=== PATIENT | female | born 1990 ===

== ENCOUNTER 2022-02-07 03:27 | Inpatient (IN) ==
[~2022-02-07 03:27] MED LIST: Azithromycin 500 MG in 0.9 % Sodium Chloride 250 ML IVPB PRN; Famotidine 20 MG/2 ML VIAL IVP PRN; Metoclopramide 10 MG/2 ML VIAL IVP PRN; Naloxone 0.4 MG/ML INJ IVP PRN; Ondansetron 4 MG/2 ML VIAL IVP PRN
[2022-02-07] MEDS ORDERED: Oxytocin 30 UNIT/503 ML BAG IVC SCH ×2 (03:30→07:39)
[2022-02-07 04:06] LABS: Basophils % 0.3 %; Eosinophils # 0.2 K/mcL (0.0-0.6); Eosinophils % 1.3 %; Hematocrit 33.9 % (35.3-44.9); Hemoglobin 10.9 g/dL (11.5-15.4); Immature Granulocytes % 0.4 % (0-4); Lymphocytes # 2.2 K/mcL (0.6-4.6); Lymphocytes % 15.8 %; Mean Corpuscular HGB Conc 32.2 g/dL (31.6-35.5); Mean Corpuscular Hemoglobin 27.8 pg (28.0-33.3); Mean Corpuscular Volume 86.5 fL (83.0-100.0); Mean Platelet Volume 10.7 fL (9.4-12.4); Monocytes # 0.9 K/mcL (0.0-1.3); Monocytes % 6.2 %; Neutrophils # 10.5 K/mcL (1.6-8.9); Platelet Count 279 K/mcL (140-400); Red Blood Count 3.92 M/mcL (3.82-4.97); Red Cell Distribution Width 12.1 % (11.5-14.5); White Blood Count 13.8 K/mcL (4.3-11.1)
[2022-02-07] MEDS ORDERED: EPHEDrine 50 MG/ML VIAL IVP PRN (04:07)
[2022-02-07] MEDS ORDERED: Epidural Premix (fent/bupiv) 110 ML EP SCH (04:15)
[2022-02-07] MEDS: *HR* FentaNYL (PF) 100 MCG/2 ML VIAL IVP PRN ×2 (04:18→06:12)
[2022-02-07 04:34] LABS: Influenza A PCR Negative (Negative); Influenza B PCR Negative (Negative); Resp. Syncytial Virus PCR Negative (Negative)
[2022-02-07 04:36] LABS: SARS-CoV-2 by PCR (In House) Negative (Negative)
[2022-02-07] MEDS ORDERED: Ringers Solution, Lactated 1,000 ML ONE (05:11)
[2022-02-07 05:56] LABS: Amphetamine Screen,Urine Negative ng/mL (Cutoff=1000); Barbiturate Screen,Urine Negative ng/mL (Cutoff=200); Benzodiazepines Screen,Urine Negative ng/mL (Cutoff=200); Cannabinoid Screen,Urine Negative ng/mL (Cutoff = 50); Cocaine Screen,Urine Negative ng/mL (Cutoff= 300); Opiate Screen,Urine Negative ng/mL (Cutoff=300); Phencyclidine Screen,Urine Negative ng/mL (Cutoff=25)
[2022-02-07] MEDS ORDERED: Benzocaine/Menthol 56 GM AEROSOL SPRAY TP PRN (07:39)
[2022-02-07] MEDS ORDERED: Lanolin 7 G OINT...G. TP PRN (07:39)
[2022-02-07] MEDS ORDERED: Ondansetron ODT 4 MG TAB.RAPDIS SL PRN (07:39)
[2022-02-07] MEDS ORDERED: OXYTOCIN/RINGERS LACTATE 10 UNIT/166.6 ML BAG IVC ONE (07:39)
[2022-02-07] MEDS: Acetaminophen 325 MG TABLET PO SCH ×3 (08:03→23:04)
[2022-02-07] MEDS: *HR* Buprenorphine HCl 8 MG TAB.SUBL SL SCH (09:56)
[2022-02-07] MEDS: Ibuprofen 600 MG TABLET PO SCH ×3 (09:56→22:58)
[2022-02-07] MEDS: Prenatal Vit/FA 1 EACH TABLET PO SCH (09:56)
[2022-02-08 04:08] LABS: Basophils % 0.4 %; Eosinophils # 0.2 K/mcL (0.0-0.6); Eosinophils % 2.2 %; Hematocrit 30.1 % (35.3-44.9); Hemoglobin 9.8 g/dL (11.5-15.4); Immature Granulocytes % 0.5 % (0-4); Lymphocytes # 2.4 K/mcL (0.6-4.6); Mean Corpuscular HGB Conc 32.6 g/dL (31.6-35.5); Mean Platelet Volume 10.5 fL (9.4-12.4); Monocytes # 0.8 K/mcL (0.0-1.3); Monocytes % 7.9 %; Neutrophils # 6.4 K/mcL (1.6-8.9); Platelet Count 224 K/mcL (140-400); Red Cell Distribution Width 12.1 % (11.5-14.5); White Blood Count 9.8 K/mcL (4.3-11.1)
[2022-02-08] MEDS: Ibuprofen 600 MG TABLET PO SCH (05:24)
[2022-02-08] MEDS: Acetaminophen 325 MG TABLET PO SCH (05:24)
[2022-02-08 07:41] VITALS: BP 122/63; PULSE 77; TEMP 97.9; O2SAT 98
[2022-02-08] MEDS: Prenatal Vit/FA 1 EACH TABLET PO SCH (08:41)
[2022-02-08] MEDS: *HR* Buprenorphine HCl 8 MG TAB.SUBL SL SCH (08:41)
== END 2022-02-08 12:59 | disposition home or self-care (01) | DRG 560 ==
LOC: 1NENULAB → 1NENUOBS 08:46
PROVIDERS: ADMIT Registered Nurse; ATTEND Registered Nurse